=== PATIENT | female | born 1935 | race Caucasian/White ===

== ENCOUNTER 2021-10-08 19:04 | Observation (INO) | payer MEDICARE ==
[2021-10-08] MEDS ORDERED: Guaifenesin DM 100-10/5 ML UDCUP PO PRN (19:32)
[2021-10-08] MEDS ORDERED: Calcium Carbonate 500 MG ChewTAB PO PRN (19:32)
[2021-10-08] MEDS ORDERED: Acetaminophen 325 MG TAB PO PRN (19:32)
[2021-10-08] MEDS ORDERED: Ondansetron PF 4 MG/2 ML Vial IVP PRN (19:32)
[2021-10-08] MEDS ORDERED: Senokot S 8.6-50 MG TAB PO PRN (19:32)
[2021-10-08] MEDS ORDERED: Gabapentin 100 MG CAP PO SCH ×2 (21:00→21:45)
[2021-10-08 21:42] VITALS: BMI 31.4
[2021-10-08] MEDS ORDERED: predniSONE 20 MG TAB PO SCH (21:45)
[2021-10-08] MEDS ORDERED: Lactated Ringer's 500 ML IV SCH (21:45)
[2021-10-08] MEDS ORDERED: Melatonin 3 MG TAB PO PRN (23:35)
[2021-10-09 00:31] LABS: SARS-CoV-2 NAA Rapid Test Not Detected (NotDetected)
[2021-10-09 04:12] LABS: Anion Gap 13 mmol/L (10-20); BUN (Urea Nitrogen) 22 mg/dL (9.8-20.1); Calc. Creatinine Clearance 33 mL/min (70-130); Calcium 9.5 mg/dL (7.8-10.44); Carbon Dioxide 22 mmol/L (23-31); Cardiac Risk 4.4 (Less than 4.5); Chloride 110 mmol/L (98-107); Cholesterol 270 mg/dl (< 200 Desired); Estimated GFR 34; Glucose 140 mg/dL (83-110); HDL Cholesterol 62 mg/dL (>60 Neg Risk); LDL Cholesterol, Calculated 194 mg/dL; Magnesium 1.9 mg/dL (1.6-2.6); Potassium 4.5 mmol/L (3.5-5.1); Sodium 140 mmol/L (136-145); Triglycerides 71 mg/dL (Less than 150)
[2021-10-09] MEDS ORDERED: Amlodipine 5 MG TAB PO SCH (09:00)
[2021-10-09] MEDS ORDERED: Enoxaparin Sodium 40 MG/0.4 ML SYRINGE SC SCH (09:00)
[2021-10-09] MEDS ORDERED: Losartan Potassium 50 MG TAB PO SCH (09:00)
[2021-10-09] MEDS ORDERED: Aspirin 81 mg Enteric Coated Tablet PO SCH (09:00)
[2021-10-09] MEDS ORDERED: Sodium Chloride 0.45% 1,000 ML IV SCH (10:30)
[2021-10-09 16:21] LABS: Vitamin B12 Greater than 2000 pg/mL (211-911)
[2021-10-09 17:07] VITALS: BP 139/77; TEMP 97.5
[2021-10-09] MEDS ORDERED: Atorvastatin Calcium 40 MG TAB PO SCH (21:00)
[2021-10-09] MEDS ORDERED: Gabapentin 100 MG CAP PO SCH ×2 (21:00)
[2021-10-10] MEDS ORDERED: Losartan Potassium 50 MG TAB PO SCH (09:00)
[2021-10-10] MEDS ORDERED: Aspirin 81 mg Enteric Coated Tablet PO SCH (09:00)
[2021-10-10] MEDS ORDERED: Amlodipine 5 MG TAB PO SCH (09:00)
== END 2021-10-09 17:30 | disposition home health service (06) ==
LOC: CSHTELE 19:04 → INTOOBSV 19:04
PROVIDERS: ADMIT Family Medicine; ATTEND Family Medicine
DX: R29.898 Other symptoms and signs involving the musculoskeletal system (principal); R42 Dizziness and giddiness; E86.0 Dehydration; I12.9 Hypertensive chronic kidney disease with stage 1 through stage 4 chronic kidney disease, or unspecified chronic kidney disease; N18.30 Chronic kidney disease, stage 3 unspecified; E78.5 Hyperlipidemia, unspecified; K21.9 Gastro-esophageal reflux disease without esophagitis; M19.90 Unspecified osteoarthritis, unspecified site; Z79.82 Long term (current) use of aspirin; Z79.899 Other long term (current) drug therapy; Z90.710 Acquired absence of both cervix and uterus
CPT/HCPCS: 70551; 80048; 80061; 82607; 83735; 84443; 93306; 93880; 97116; 97535; U0002; 36415; 96372; G0378; J1650; J7120; J7512